=== PATIENT | female | born 1975 | race Caucasian/White ===

== ENCOUNTER 2018-03-19 16:11 | Emergency (ER) | payer OTHER ==
[~2018-03-19] VITALS: Ht 175.3 cm; Wt 108.9 kg
[~2018-03-19 16:11] MED LIST: ACETAMINOPHEN-1 EAC1 PO; DOXYCYCLINE 10100 MG PO; HYDROCODON-ACE1 EAC7 PO; NAPROSYN500 M1 PO; ZYRTEC10 M5 PO
[2018-03-19] MEDS ORDERED: NORCO 5-325 TA1 EACH PO (16:40)
[2018-03-19 16:53] VITALS: BP 130/82
== END 2018-03-19 16:54 | disposition home or self-care (01) ==
LOC: M.ERS 16:11
DX: S80.862A Insect bite (nonvenomous), left lower leg, initial encounter (principal); E11.9 Type 2 diabetes mellitus without complications; F17.210 Nicotine dependence, cigarettes, uncomplicated; Z88.1 Allergy status to other antibiotic agents; W57.XXXA Bitten or stung by nonvenomous insect and other nonvenomous arthropods, initial encounter; Y93.89 Activity, other specified; Y92.89 Other specified places as the place of occurrence of the external cause; Y99.8 Other external cause status